=== PATIENT | male | born 1940 | race Caucasian/White ===

== ENCOUNTER → 2016-09-14 | Outpatient (CLI) | payer OTHER ==
[~2016-09-14] MED LIST: AMARYL PO; ASPIRIN81 MG PO; COREG6.25 MG PO; PANTOPRAZOLE SO40 MG PO; SIMVASTATIN20 MG PO
--- NOTE | ~2016-09-14 | PFT ---
[id number] [facility] [address] [facility]. [place], [place] [address] [id number] O MR#: [id number] NAME: SKY MYERS ROOM: SEX: M STUDY DATE/TIME: 09/18/2016 : 1940 AGE: 76 STUDY DESCRIPTION: Attending Physician: Yonathan Shay M.D. Referring Physician: Yonathan Shay M.D. Primary Care Physician: Generic Doctor Not In System PULMONARY DIAGNOSTIC REPORT EXAM Pulmonary function test. FINDINGS Spirometry is suggestive of a moderate restrictive defect. There is a significant, 15%, change after bronchodilators yielding a FEV1 of two liters, 63% of predicted. Flow volume loop shows significant variability. Lung volumes suggest a moderate restrictive defect. Diffusion capacity is moderately reduced. Changes are consistent with a moderate intrinsic restrictive defect such as pulmonary fibrosis. There may be a degree of airway disease as well and clinical correlation is needed. Dictated by... Stefan Cason M.D. ISRAEL/david TD: 09/18/2016 13:45 JOB #: [id number] PULMONARY DIAGNOSTIC REPORT Page 1 of 1
[2016-09-14 10:27] LABS: ARTERIAL BLOOD GAS CARBOXY HB 0.8 %sat (0.0-9.0); ARTERIAL BLOOD GAS HCO3 24.2 mmol/L; ARTERIAL BLOOD GAS MET HB 0.7 %sat (0.0-2.0); ARTERIAL BLOOD GAS PCO2 35.3 mmHg (35.0-45.0); ARTERIAL BLOOD GAS pH 7.444 (7.350-7.450)
[2016-09-14 10:30] LABS: ARTERIAL BLOOD GAS ALLEN TEST N; ARTERIAL BLOOD GAS ART SITE LEFT RADIAL; ARTERIAL BLOOD GAS PO2 75.4 mmHg (80.0-100); ARTERIAL DRAW? YES
== END | disposition home or self-care (01) ==
LOC: CRC 10:00
PROVIDERS: Internal Medicine Cardiovascular Disease
DX: R06.09 Other forms of dyspnea (principal)
CPT/HCPCS: 36600; 82803; 94060; 94726; 94729